=== PATIENT | male | born 1950 | race Caucasian/White ===

== ENCOUNTER 2018-05-20 06:29 | Inpatient (IN) ==
[2018-05-20] MEDS ORDERED: Famotidine PF Inj 20 MG/2 ML Vial IV.PUSH ONE (07:04)
[2018-05-20] MEDS ORDERED: Dexamethasone Inj 20 MG/5 ML Vial IV.PUSH ONE (07:04)
[2018-05-20] MEDS ORDERED: Gabapentin 300 MG Capsule PO ONE (07:04)
[2018-05-20] MEDS ORDERED: Celecoxib 200 MG Capsule PO ONE (07:04)
[2018-05-20] MEDS ORDERED: Bupivacaine/Epi PF 0.25% Inj 20 ML, Bupivacaine Liposo PF 1.3% Inj 20 ML, Sodium Chlor ... P-ARTICULR SCH ×2 (07:15)
[2018-05-20] MEDS ORDERED: ceFAZolin Inj 2,000 MG in Sodium Chlor 0.9% Inj 100 ML IV.SIG SCH (07:23)
[2018-05-20] MEDS ORDERED: Vancomycin Inj 1,000 MG in Sodium Chlor 0.9% Inj 250 ML IV.SIG SCH (07:28)
[2018-05-20] MEDS ORDERED: Chlorhexidine Gluconate 2% 1 Pack (2 Cloths) TOPICAL SCH (07:30)
[2018-05-20] MEDS ORDERED: Metoprolol Tartrate 25 MG Tablet PO SCH (07:30)
[2018-05-20] MEDS ORDERED: Sodium Chlor 0.9% Inj 250 ML ONE (07:32)
[2018-05-20] MEDS ORDERED: SODIUM CHLOR 0.9% IV.SIG SCH (08:00)
[2018-05-20] MEDS ORDERED: TRANEXAMIC ACID IV.SIG SCH (08:00)
[2018-05-20] MEDS ORDERED: Sodium Chlor 0.9% Inj 500 ML IV.SIG SCH (08:00)
[2018-05-20] MEDS ORDERED: Ketamine Inj 50 MG/5 ML Syringe IV.PUSH ONE (09:42)
[2018-05-20] MEDS ORDERED: Phenylephrine/NS 1000 MCG/10ML Syringe IV.PUSH ONE (12:00)
[2018-05-20] MEDS ORDERED: Vancomycin Inj 1 GM/200 ML PIGGYBACK IV.SIG SCH (13:00)
[2018-05-20] MEDS ORDERED: Morphine Inj 4 MG/ML Vial IV.PUSH PRN (13:00)
[2018-05-20] MEDS ORDERED: Post-op Orders (for Pharmacy) OTHER STA (13:00)
[2018-05-20] MEDS ORDERED: Bisacodyl 10 MG Supp RECTAL PRN (13:00)
[2018-05-20] MEDS ORDERED: Calcium/Vitamin D 250/125 MG Tablet PO SCH (13:00)
--- NOTE | 2018-05-20 13:09 | P.OP ---
- Preoperative Diagnosis (1) Post-traumatic osteoarthritis of right hip Date of procedure: 05/20/18 Procedure: Removal of deep hardware, conversion to right total hip arthroplasty Anesthesia: spinal Surgeon: Federcio White MD Family Preservation Worker: JOSEPH Houser PA-C The surgical procedure was assisted by my physician telecom assistant. My P.A. presence was necessary throughout this case for the manipulation and positioning of the surgical extremity. My P.A. was assisting me throughout the duration of this procedure. The skill set of a physician telecom assistant was medically necessary to complete this procedure. During the surgical case the surgical elastic knitter hand frame was working at the back table and the physician telecom assistant was directly assisting me. Operation and Findings: Weight bear as tolerated. IMPLANTS USED DePuy revision Corail size [13] collared stem with a size [56+4 10] Lawrence Gription cup and a [36+1] ceramic Biolox head. DETAILS OF PROCEDURE: This patient has a long history of hip pain. Patient was found to have severe osteoarthritis. The patient had radiographic evidence of joint space narrowing with [id number] arthritis and osteophytes around the acetabulum as well as the femoral head. There was also some cystic changes. The patient failed conservative treatment with pain medications, anti-inflammatories, physical therapy, assistive devices including a cane, as well as therapeutic injection of the hip. The patient wished to proceed with surgery and informed consent was obtained. Operative site was marked. I discussed both posterior approach and anterior approach with patient decision was made for posterior approach. Patient was brought to OR and placed on OR table. IV sedation and general anesthesia was administered by anesthesiologist. Patient was positioned lateral on the operating room table and was given IV antibiotics. Time-out procedure was performed. The operative hip and leg were prepped with alcohol followed by Hibiclens and draped in the usual sterile fashion. Clean Air Suite was used for this procedure. The procedure began with a 8-inch incision over the posterolateral thigh including a portion of of his previous scar. Subcutaneous tissue was dissected with Bovie. The fascia of the iliotibial band was incised. Gluteus muscle was split in line with fibers. Charnley retractor was placed. Attention was now turned towards hardware removal. Vastus lateralis was split to allow for exposure of the plate. Osteotomes were used to remove heterotopic bone around the plate. Using the appropriate screwdrivers the screws were removed. Osteotomes were used to elevate the sideplate. The blade plate was now removed. Attention was now turned towards conversion to total hip arthroplasty. The hip joint was exposed. Piriformis and external rotator muscles were identified and then released from the posterior femur. The hip capsule was incised and sutures were placed to help retract the capsule. At this point the femoral head and neck were identified. With soft tissue protected, oscillating saw was used to make a cut through the femoral neck, the femoral head was now removed. At this point attention was turned to preparation of the acetabulum. The labrum was excised. The acetabulum was sequentially reamed appropriately to size 56. Care was taken to maintain appropriate version. A trial cup was placed and was found to be a good fit. A Lawrence cup was now fully impacted into the acetabulum and found to have excellent fit. Hole eliminator was now placed. The liner was now impacted into the cup. At this point attention was turned towards preparation of the proximal femur. Retractors were placed around the proximal femur to allow for exposure. A box osteotome was used to remove the lateral cortex of the femoral neck. A broach was used to help lateralize the prosthesis. Canal finder was used to create a path down the canal. The canal was sequentially reamed up to size 13 for the revision corail stem. Next, the canal was sequentially broached until there was an excellent fit. Calcar planer was placed. A trial head was placed and the hip was reduced. Trial head was now was placed and the hip was found to have excellent stability with good range of motion. The leg lengths were measured under clinically and found to be equal compared to preoperatively. Trial broach was removed. The size 13 revision Corail stem was opened. Stem was fully impacted into the proximal femur in appropriate version. The femoral head was placed. The hip was again reduced. The wound was thoroughly irrigated. Hip capsule, external rotators, and iliotibial band was closed with #1 Vicryl. A drain was placed deep into the wound. Subcutaneous tissue was closed with 3-0 Vicryl and the skin was closed with sofia and Dermabond skin closure. The capsule layers were injected with a mixture of saline and bupivicaine. Dressings were applied. The patient was transferred to Recovery Room in stable condition.
[2018-05-20] MEDS ORDERED: fentaNYL Citrate Inj 100 MCG/2 ML Ampul ONE (13:29)
--- NOTE | 2018-05-20 13:55 | XR ---
EXAM DATE: 05/20/2018 1:50 PM EDT AGE/SEX: 68 years / Male INDICATIONS: Post op right hip surgery. CLINICAL DATA: This is the patient's initial encounter. Patient reports that signs and symptoms have been present for 1 day and indicates a pain score of Nonresponsive. MEDICAL/SURGICAL HISTORY: Non-responsive. Non-responsive. COMPARISON: No prior exams available for comparison. FINDINGS: The patient is post right knee arthroplasty. Orthopedic hardware appears in good position. There is n o evidence of fracture. CONCLUSION: Orthopedic hardware in good position. There is no evidence of complication. Electronically signed by: Bishop Villafuerte MD 05/20/2018 1:53 PM EDT
[2018-05-20] MEDS ORDERED: ceFAZolin Inj 2,000 MG in Sodium Chlor 0.9% Inj 80 ML IV.SIG SCH (14:30)
[2018-05-20] MEDS: ceFAZolin Inj 2,000 MG in Sodium Chlor 0.9% Inj 80 ML IV.SIG SCH ×2 (15:29→23:47)
[2018-05-20] MEDS: Calcium/Vitamin D 250/125 MG Tablet PO SCH (18:00)
[2018-05-20] MEDS: Vancomycin Inj 1,000 MG in Sodium Chlor 0.9% Inj 250 ML IV.SIG SCH (20:36)
[2018-05-20] MEDS: Senna/Docusate Sodium 8.6/50 MG Tablet PO SCH (20:36)
[2018-05-21 01:42] VITALS: RESP 18
[2018-05-21 05:22] LABS: Hemoglobin 10.3 gm/dL (13.0-17.0)
--- NOTE | 2018-05-21 06:59 | P.PNOP ---
Subjective Interval history: POD 1 s/p removal of HW with conversion to right total hip Doing well. Pain well controlled. Out of bed and ambulating with a walker with minimal discomfort. Physical Exam Vital signs: Vital Signs 05/20/18 07:14 05/20/18 13:20 05/20/18 13:30 Temperature 97.9 F 97.5 F L Pulse Rate 80 90 87 Respiratory Rate 21 16 22 Blood Pressure 179/94 H 121/60 116/55 L Pulse Oximetry 95 97 97 05/20/18 13:45 05/20/18 14:00 05/20/18 14:15 Temperature Pulse Rate 80 72 65 Respiratory Rate 20 18 18 Blood Pressure 119/64 116/60 115/60 Pulse Oximetry 96 95 05/20/18 14:30 05/20/18 14:45 05/20/18 15:00 Temperature Pulse Rate 67 55 L 53 L Respiratory Rate 20 18 18 Blood Pressure 119/66 125/70 119/64 Pulse Oximetry 99 100 100 05/20/18 15:15 05/20/18 15:30 05/20/18 20:00 Temperature 97.9 F Pulse Rate 50 L 55 L 76 Respiratory Rate 18 20 18 Blood Pressure 137/64 120/61 132/64 Pulse Oximetry 100 100 98 05/20/18 20:35 05/21/18 00:00 05/21/18 04:00 Temperature 98.0 F 97.1 F L Pulse Rate 66 62 Respiratory Rate 3 L 18 18 Blood Pressure 130/63 152/71 H Pulse Oximetry 97 94 L Intake & Output 05/20/18 05/20/18 05/21/18 06:59 18:59 06:59 Intake Total 3500 / 3500 350 / 350 Output Total 600 / 600 Balance 2900 / 2900 350 / 350 Weight 75.4 kg Intake: IV 300 / 300 350 / 350 LR 1000 mL Inj 1,000 ML @ 30 0 / 0 mls/hr IV.SIG .Q24H ALFREDO Rx#: [id number] Vancomycin Inj 1,000 MG In NS 250 / 250 Inj 250 ML @ 250 mls/hr IV.SIG Q12H ALFREDO Rx#:[id number] Vancomycin Inj 1,000 MG In NS 200 / 200 Inj 250 ML @ 200 mls/hr IV.SIG DIRECTOR HOME ALFREDO Rx#:[id number] Ancef Inj 2,000 MG In NS Inj 80 100 / 100 100 / 100 ML @ 200 mls/hr IV.SIG Q8H ALFREDO Rx#:[id number] Anesthesia Amount 3200 / 3200 Output: Estimated Blood Loss 600 / 600 Other: # Voids 1 Date of Last Bowel Movement 05/20/18 Weight On Admission 75.4 kg Narrative: RLE: dressings clean and dry. intact. +CKS. NVI. strong dorsiflexion with minimal discomfort. Results - Labs CBC & Chem 7: 05/21/18 04:25 Laboratory Results - last 24 hr 05/20/18 05/21/18 07:25 04:25 Hgb 10.3 L Hct 30.0 L Blood Type O Positive Blood Type Recheck Required Antibody Screen Negative - Imaging Impressions Hip X-Ray 05/20/18 13:02 CONCLUSION: Orthopedic hardware in good position. There is no evidence of complication. Assessment and Plan - Assessment and Plan 1) Right Hip Removal of HW with conversion to posterior total hip - POD 1 -WBAT -posterior hip precautions -knee brace while in bed -maintain dressing x 6 days and begin daily dressing chagnes on POD 7 with primapore -maintain surgical mesh on incsision -DVT prophylaxis -CM for DC planning --> home with [facility] today -follow up with Jules or JOSE in 2 weeks
[2018-05-21] MEDS: ceFAZolin Inj 2,000 MG in Sodium Chlor 0.9% Inj 80 ML IV.SIG SCH (07:00)
--- NOTE | 2018-05-21 07:03 | P.DCO ---
- Physical Therapy Physical Therapy: Gait training Hip: Total hip, Protocol: Right, Posterior hip precautions, Progress to weight bearing Canvas Knee Splint: Other (only while in bed) Right Lower Extremity Weight Bearing: Weight bearing as tolerated - Nursing Dressing changes: Do not change dressing (x 6 days), Coverderm/Primapore (begin on POD 7) - Certification Need for Home Health services: I have seen patient Enio David on 05/21/18. My clinical findings support the need for the requested home health care services because: Need for Home Health Services: Limited mobility due to disease progression Homebound Certification: I certify that my clinical findings support that this patient is homebound because: Homebound Certification: Post-op weakness
--- NOTE | 2018-05-21 07:15 | P.DS ---
Date of admission: 05/20/18 06:29 Primary care physician: Kelvin Thompson MD Attending physician on discharge: Federico White Anticipated date of discharge: 05/21/18 Brief History from admission: Patient has been seen and evaluated on outpatient basis. He had suffered a previous hip fracture back in the 1970s for which he underwent surgical fixation. However, over the past few years his hip pain has been increasingly worse on the right side. 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 After failing conservative treatments which included anti-inflammatory therapy, activity modification, and steroid injections, the decision was made to move forward with elective removal of hardware and conversion to a right total hip. DS: Diagnosis - Discharge Diagnosis (1) S/P total hip arthroplasty Status: Acute Diagnosis: Principal DS: Medications - Discharge Medications Prescriptions: aspirin [Key Chewable Aspirin] 81 mg PO BID #60 tab hydrocodone-acetaminophen [G[place]pine] 1 tab PO Q4H #40 tab DS: Summary Hospital Course: Patient admitted for removal of hardware and conversion to a right total hip. He tolerated the procedure well. He is out of bed on postop day 0 and ambulating with a walker. By postop day 1, his pain was well-controlled and he was hemodynamically stable. He is fit for discharge home with home health care. He will remain fully weightbearing on the right leg. He will observe posterior hip precautions. He will wear a knee brace while in bed. He will maintain his surgical dressing for 6 days and then begin daily dressing changes with the 4 on postop day 7. He will have aspirin 81 mg twice daily for 30 days for DVT prophylaxis. He will follow-up in the office with Dr. White or his PA in 2 weeks. - Time Spent with Patient Total time spent providing and/or coordinating discharge services: Less than 30 minutes - Quality: VTE Deep Vein Thrombosis/Pulmonary Embolism Present on Admission: No Exam Vital signs: Vital Signs 05/20/18 07:14 05/20/18 13:20 05/20/18 13:30 Temperature 97.9 F 97.5 F L Pulse Rate 80 90 87 Respiratory Rate 21 16 22 Blood Pressure 179/94 H 121/60 116/55 L Pulse Oximetry 95 97 97 05/20/18 13:45 05/20/18 14:00 05/20/18 14:15 Temperature Pulse Rate 80 72 65 Respiratory Rate 20 18 18 Blood Pressure 119/64 116/60 115/60 Pulse Oximetry 96 95 05/20/18 14:30 05/20/18 14:45 05/20/18 15:00 Temperature Pulse Rate 67 55 L 53 L Respiratory Rate 20 18 18 Blood Pressure 119/66 125/70 119/64 Pulse Oximetry 99 100 100 05/20/18 15:15 05/20/18 15:30 05/20/18 20:00 Temperature 97.9 F Pulse Rate 50 L 55 L 76 Respiratory Rate 18 20 18 Blood Pressure 137/64 120/61 132/64 Pulse Oximetry 100 100 98 05/20/18 20:35 05/21/18 00:00 05/21/18 04:00 Temperature 98.0 F 97.1 F L Pulse Rate 66 62 Respiratory Rate 3 L 18 18 Blood Pressure 130/63 152/71 H Pulse Oximetry 97 94 L Intake & Output 05/20/18 05/21/18 05/21/18 18:59 06:59 18:59 Intake Total 3500 / 3500 350 / 350 Output Total 600 / 600 Balance 2900 / 2900 350 / 350 Weight 75.4 kg Intake: IV 300 / 300 350 / 350 LR 1000 mL Inj 1,000 ML @ 30 0 / 0 mls/hr IV.SIG .Q24H ALFREDO Rx#: [id number] Vancomycin Inj 1,000 MG In NS 250 / 250 Inj 250 ML @ 250 mls/hr IV.SIG Q12H ALFREDO Rx#:[id number] Vancomycin Inj 1,000 MG In NS 200 / 200 Inj 250 ML @ 200 mls/hr IV.SIG DIVIDING MACHINE OPERATOR HELPER ALFREDO Rx#:[id number] Ancef Inj 2,000 MG In NS Inj 80 100 / 100 100 / 100 ML @ 200 mls/hr IV.SIG Q8H ALFREDO Rx#:[id number] Anesthesia Amount 3200 / 3200 Output: Estimated Blood Loss 600 / 600 Other: # Voids 1 Date of Last Bowel Movement 05/20/18 Weight On Admission 75.4 kg Narrative: RLE: dressings clean and dry. intact. +CKS. NVI. strong dorsiflexion with minimal discomfort. Results Procedures completed during hospitalization: Removal of hardware with conversion to posterior right total hip arthroplasty Labs on day of discharge: Labs from last 24 hours 05/21/18 05/20/18 04:25 07:25 Hgb 10.3 L Hct 30.0 L Blood Type O Positive Blood Type Recheck Required Antibody Screen Negative - Impressions ITS Impressions Hip X-Ray 05/20/18 13:02 CONCLUSION: Orthopedic hardware in good position. There is no evidence of complication. Discharge Plan - Discharge Disposition Patient Disposition: W/Home Health Service - Discharge Condition Condition: Good - Discharge Order Discharge Orders: Discharge Order (Routine); Ordered 05/21/18 Ordered By: David Burrell - Physicians Team Primary Care Provider: Kelvin Thompson Attending Provider: Federico White - Rxs /Orders / Referrals /Forms Prescriptions: New aspirin [Key Chewable Aspirin] 81 mg Tablet,Chewable 81 mg PO BID Qty: 60 RF: 0 hydrocodone-acetaminophen [Glen Alpine] 10-325 mg Tablet 1 tab PO Q4H Qty: 40 RF: 0 Continue atorvastatin 10 mg Tablet 10 mg PO DAILY lisinopril 10 mg Tablet 10 mg PO DAILY Ambulatory Orders / Order Sets / DME: Walker Folding (Routine) Location: Determined by Patient Ordered By: David Burrell Referrals: Kelvin Thompson MD [Primary Care Provider] - See Instructions Federico White MD [Physician] - See Instructions (2 weeks ) - Discharge Instructions Patient Printed Instructions: Total Hip Replacement (DC)
[2018-05-21] MEDS: Senna/Docusate Sodium 8.6/50 MG Tablet PO SCH (08:29)
[2018-05-21] MEDS: Calcium/Vitamin D 250/125 MG Tablet PO SCH (08:29)
[2018-05-21] MEDS: Vancomycin Inj 1,000 MG in Sodium Chlor 0.9% Inj 250 ML IV.SIG SCH (08:30)
[2018-05-21] MEDS ORDERED: Lisinopril 10 MG Tablet PO SCH (09:00)
[2018-05-21 09:32] VITALS: TEMP 98
[2018-05-21] MEDS ORDERED: Rivaroxaban 10 MG Tablet PO SCH (12:00)
[2018-05-21 12:49] VITALS: BP 141/70; PULSE 70; O2SAT 99
== END 2018-05-21 13:20 | disposition home health service (06) ==
LOC: HSDI 06:29 → N06 16:51
PROVIDERS: ADMIT Orthopaedic Surgery Orthopaedic Trauma; ATTEND Orthopaedic Surgery Orthopaedic Trauma